=== PATIENT | female | born 1980 | race Caucasian/White ===

== ENCOUNTER → 2021-04-11 | Outpatient (REF) | payer BC | LOC: M WUC 15:21 | PROVIDERS: ATTEND Physician Assistant | DX: N39.0 Urinary tract infection, site not specified (principal) ==

== ENCOUNTER → 2022-04-08 | Outpatient (REF) | payer BC | LOC: M LAB REF 18:22 | PROVIDERS: ATTEND Physician Assistant | DX: R30.0 Dysuria (principal) ==

== ENCOUNTER → 2022-10-20 | Outpatient (CLI) | payer BC ==
[2022-10-20 16:42] LABS: BASO # 0.1 10^3/uL (0.0-0.2); BASO % 0.9 % (0.0-1.0); EOS % 0.4 % (0.0-3.0); HEMATOCRIT 42.3 % (36.0-47.0); HEMOGLOBIN 13.9 g/dl (12.0-15.5); LYMPH # 2.6 10^3/uL (1.5-5.0); LYMPH % 31.3 % (24.0-44.0); MEAN CORPUSCULAR HEMOGLOBIN 30.7 pg (27.0-33.0); MEAN CORPUSCULAR HGB CONC 32.9 g/dl (32.0-36.5); MEAN CORPUSCULAR VOLUME 93.4 fl (80.0-96.0); MONO # 0.5 10^3/uL (0.0-0.8); PLATELET COUNT, AUTOMATED 287 10^3/uL (150-450); RED BLOOD COUNT 4.53 10^6/uL (4.00-5.40); WHITE BLOOD COUNT 8.2 10^3/uL (4.0-10.0)
[2022-10-20 17:11] LABS: C REACTIVE PROTEIN QUANTITATIV < 0.40 MG/DL (<1.0); LIPASE 36 U/L (12-53)
[2022-10-20 17:12] LABS: AMYLASE 61 U/L (30-118)
[2022-10-20 17:13] LABS: ALBUMIN 4.3 G/DL (3.2-5.2); ALKALINE PHOSPHATASE 61 U/L (46-116); ALT/SGPT 22 U/L (7.0-40); AST/SGOT 21 U/L (<34); BILIRUBIN,TOTAL 0.4 MG/DL (0.3-1.2); BLOOD UREA NITROGEN 8 MG/DL (9-23); CALCIUM LEVEL 9.3 MG/DL (8.5-10.1); CARBON DIOXIDE LEVEL 29 MMOL/L (20-31); CHLORIDE LEVEL 102 MMOL/L (98-107); CREATININE FOR GFR 0.67 MG/DL (0.55-1.30); GLOMERULAR FILTRATION RATE > 60.0 (>58); GLUCOSE, FASTING 88 MG/DL (60-100); HCG, SERUM QUANTITATIVE < 2.6 MIU/ML (<4.2); IRON (FE) 74 UG/DL (50-170); PERCENT SATURATION 20.4 % (13.2-45.0); POTASSIUM SERUM 3.9 MMOL/L (3.5-5.1); SODIUM LEVEL 137 MMOL/L (136-145); THYROID STIMULATING HORMONE 0.799 uIU/ML (0.55-4.78); TOTAL IRON BINDING CAPACITY 362 UG/DL (250-425); TOTAL PROTEIN 7.9 G/DL (5.7-8.2)
== END ==
LOC: M WUC 13:52
PROVIDERS: ATTEND Physician Assistant
DX: R10.84 Generalized abdominal pain (principal)

== ENCOUNTER 2025-06-24 07:05 | Day surgery (SDC) | payer OTHER ==
[~2025-06-24] VITALS: Ht 160 cm; Wt 64.0 kg
[2025-06-24 09:03] VITALS: TEMP 98.8
[2025-06-24] MEDS ORDERED: LIDOCAINE 2% 100 MG/5 ML SDV (FOR ANES.) As Ordered ONE (09:03)
[2025-06-24 09:18] VITALS: BP 111/70; O2SAT 99
== END 2025-06-24 09:33 | disposition home or self-care (01) ==
LOC: M OPP 07:05
PROVIDERS: ATTEND Internal Medicine Gastroenterology
DX: Z12.11 Encounter for screening for malignant neoplasm of colon (principal); K64.0 First degree hemorrhoids; F17.290 Nicotine dependence, other tobacco product, uncomplicated